=== PATIENT | female | born 1965 | race Caucasian/White ===

== ENCOUNTER 2016-04-23 16:24 | Emergency (ER) | payer OTHER ==
[~2016-04-23] VITALS: Ht 157.5 cm; Wt 58.0 kg
[2016-04-23 16:35] VITALS: BP 134/64; PULSE 80; RESP 17; TEMP 97.8; O2SAT 100
[2016-04-23 16:37] VITALS: RESP 17; O2SAT 100
[2016-04-23] MEDS ORDERED: TETANUS/DIPHTHERIA TOXOID ADULT 0.5 ML VIAL IM ONE (16:45)
[2016-04-23] MEDS ORDERED: SODIUM CHLORIDE 0.9% FLUSH 5 ML FLUSH IVF PRN (16:45)
[2016-04-23] MEDS ORDERED: SILVER SULFADIAZINE 1% CR 400 GM JAR TOPICAL ONE (16:45)
[2016-04-23] MEDS ORDERED: ceFAZolin 2 GM PREMIX 50 ML IV ONE (16:45)
[2016-04-23] MEDS ORDERED: HYDROmorphone HCL PF 1 MG/ML VIAL IV PUSH ONE ×3 (16:45→18:30)
[2016-04-23 17:06] LABS: AUTOMATED NEUTROPHIL # 8.9 TH/MM3 (1.8-7.7); BASOPHIL % 0.2 % (0.0-2.0); EOSINOPHIL # 0.1 TH/MM3 (0-0.4); EOSINOPHIL % 0.7 % (0.0-4.0); HEMATOCRIT 39.4 % (35.0-46.0); HEMO FLAGS DIFF FINAL; LYMPH % 13.9 % (9.0-44.0); LYMPHOCYTE # 1.5 TH/MM3 (1.0-4.8); MEAN CELL VOLUME 89.7 FL (80.0-100.0); MEAN CORPUSCULAR HEMOGLOBIN 31.6 PG (27.0-34.0); MEAN CORPUSCULAR HGB CONC 35.2 % (32.0-36.0); NEUT % 80.2 % (16.0-70.0); PLATELET COUNT 191 TH/MM3 (150-450); RED BLOOD COUNT 4.39 MIL/MM3 (4.00-5.30); RED CELL DISTRIBUTION WIDTH 13.6 % (11.6-17.2); WHITE BLOOD COUNT 11.1 TH/MM3 (4.0-11.0)
[2016-04-23 17:20] LABS: APTT (PATIENT) 19.7 SEC (24.3-30.1); PROTHROMBIN TIME - PATIENT 11.4 SEC (9.8-11.6)
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
[2016-04-23 17:40] VITALS: BP 124/77; PULSE 89; RESP 17; O2SAT 99
[2016-04-23 17:51] LABS: BICARBONATE 21.8 MEQ/L (21.0-32.0); POTASSIUM 3.8 MEQ/L (3.5-5.1)
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
[2016-04-23] MEDS ORDERED: LIDOCAINE 1%/EPINEPHrine 1:100,000 SOLN 20 ML VIAL INFIL ONE (18:00)
[2016-04-23] MEDS ORDERED: SODIUM CHLOR 0.9% 1000 ML INJ 1,000 ML IV ONE (18:30)
[2016-04-23] MEDS ORDERED: IOHEXOL 350 MG/ML 10 ML VIAL (for RAD DIAG) IV ONE (18:50)
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
[2016-04-23] MEDS ORDERED: ONDANSETRON HCL 4 MG/2 ML VIAL IV PUSH ONE ×2 (19:00→19:30)
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
[2016-04-23 19:15] VITALS: BP 152/60; PULSE 97; RESP 25; TEMP 97.9
[2016-04-23] MEDS ORDERED: SODIUM BICARB 8.4% (PED) INJ 10 MEQ/10 ML SYR XX ONE (19:15)
[2016-04-23] MEDS ORDERED: SODIUM BICARBONATE 8.4% INJ 50 MEQ/50 ML SYR IV PUSH ONE (19:15)
[2016-04-23] MEDS ORDERED: HYDR-3516 PO (19:19)
[2016-04-23] MEDS ORDERED: SODIUM BICARBONATE 8.4% INJ 50 ML ONE (19:19)
[2016-04-23] MEDS ORDERED: CEPH-460 PO (19:19)
[2016-04-23] MEDS ORDERED: ZOFR4TAB3 SL (19:19)
[2016-04-23] MEDS ORDERED: METOCLOPRAMIDE HCL 10 MG/2 ML VIAL IV PUSH ONE (19:30)
[2016-04-23] MEDS ORDERED: LORazepam 2 MG/ML VIAL IV PUSH ONE (20:00)
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
[2016-04-23 21:33] VITALS: BP 115/66; PULSE 77; RESP 18; O2SAT 100
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
== END 2016-04-23 23:41 | disposition home or self-care (01) ==
LOC: NEPE 16:24
DX: S01.81XA Laceration without foreign body of other part of head, initial encounter (principal); S51.012A Laceration without foreign body of left elbow, initial encounter; S81.012A Laceration without foreign body, left knee, initial encounter; S40.212A Abrasion of left shoulder, initial encounter; S50.312A Abrasion of left elbow, initial encounter; S00.81XA Abrasion of other part of head, initial encounter; S70.212A Abrasion, left hip, initial encounter; S80.212A Abrasion, left knee, initial encounter; Z23 Encounter for immunization; V29.59XA Motorcycle passenger injured in collision with other motor vehicles in traffic accident, initial encounter; Y99.8 Other external cause status
CPT/HCPCS: 12001; 12032; 14021; 15004; 70450; 70486; 71260; 72125; 73030; 73080; 74177; 80048; 85025; 85610; 85730; 86850; 86900; 86901; 90471; 90714; 96374; 96375; 96376; 99291; J0690; J1170; J2060; J2405; J2765; J7030; L0150; Q9967